=== PATIENT | female | born 1940 | race Caucasian/White ===

== ENCOUNTER 2018-03-22 16:40 | Emergency (ER) | payer MEDICARE ==
[2018-03-22] MEDS ORDERED: PARO-243 PO (16:44)
[2018-03-22] MEDS ORDERED: METF-411 PO (16:44)
--- NOTE | 2018-03-22 16:45 | ER Report ---
History and Physical Time Seen By MD: 16:45 Hx. of Stated Complaint: SHOE CAUGHT AND FELL DOWN THREE STAIRS. BROKEN/MISSING TEETH, NOSE LACERATION AND LIP LACERATION. HPI/ROS CHIEF COMPLAINT: Fall with laceration to nose, laceration to lip and bruising. HISTORY OF PRESENT ILLNESS: 77-year-old female patient presents to emergency room with complaint of fall with laceration to her nose, laceration or lip and bruising. Patient states that she was leaving the [employer] tonight when she went to step down somebody offered to take a drink out of her hand. She is caring a drink for herself as well as for her . When she went to him that to the person she caught her foot on the stair and up falling face first onto the concrete. Patient denies any loss of consciousness. She states she has no neck pain, head pain, nausea, vomiting or diarrhea. Patient states she is not taking any medication for this. Patient states she is impaired that she has broken teeth as well as laceration to her nose. Patient states she is not taking any blood thinning medications. Patient denies having any headache. REVIEW OF SYSTEMS: Respiratory: No cough, no dyspnea. Cardiovascular: No chest pain, no palpitations. Gastrointestinal: No vomiting, no abdominal pain. Musculoskeletal: As noted above Allergies: Coded Allergies: clarithromycin (Verified Allergy, Unknown, 03/22/18) erythromycin base (Verified Allergy, Unknown, 03/22/18) Home Meds Active Scripts Cephalexin 500 Mg Tab (KEFLEX 500 MG TAB) 500 Mg Tablet, 500 MG PO Q6H, #28 TAB Prov:JIL HERNANDEZ [facility] 03/22/18 Oxycodone Hcl/Acetaminophen (PERCOCET 5-325 MG TABLET) 1 Each Tablet, 1 EACH PO Q4-6H Y for PAIN, #20 TAB Prov:JIL HERNANDEZP 03/22/18 Reported Medications Paroxetine Hcl (PAXIL) 20 Mg Tablet, 20 MG PO QDAY, TAB 03/22/18 Metformin Hcl (METFORMIN HCL) 500 Mg Tablet, 1 TAB PO BID, TAB 03/22/18 Past Medical/Surgical History Patient has a past medical history of diabetes. Patient denies any surgical history. Reviewed Nurses Notes: Yes Constitutional Vital Sign - Last 24 Hours 03/22/18 03/22/18 03/22/18 03/22/18 16:41 17:00 18:00 18:30 Temp 98.6 Pulse 103 90 93 106 Resp 18 B/P (MAP) 136/92 132/84 (100) 132/76 (94) 154/93 (113) Pulse Ox 95 92 93 94 O2 Delivery Room Air Physical Exam General Appearance: The patient is alert, has no immediate need for airway protection and no current signs of toxicity. Eyes: Pupils equal and round no injection. ENT: Tympanic membranes are pearly-ng, auditory canals are patent, mixed mucous membranes are moist. Patient has no septal hematomas bilaterally, patient does have a laceration to the nose measuring approximately 3 cm in length. Patient also has laceration to her lip measuring approximately 1 cm. Teeth appear to be broken and displaced. Tooth #9 is loose and hanging. Respiratory: Chest is non tender, lungs are clear to auscultation. Cardiac: regular rate and rhythm Gastrointestinal: Abdomen is soft and non tender, no masses, bowel sounds normal. Musculoskeletal: Neck: Neck is supple and non tender. Extremities have full range of motion and are non tender. Skin: No rashes or lesions. Neuro: Patient is alert and oriented 4, cranial nerves II through XII grossly intact. DIFFERENTIAL DIAGNOSIS: After history and physical exam differential diagnosis was considered for head injury including but not limited to concussion, skull fracture, intraparenchymal contusion, subarachnoid, subdural and epidural hematoma. Medical Decision Making Data Points Result Diagram: 03/22/18 1709 03/22/18 1709 Laboratory Hematology Test 03/22/18 17:09 Red Blood Count 4.81 M/uL (4.17-5.56) Mean Corpuscular Volume 89.3 fL (80.0-96.0) Mean Corpuscular Hemoglobin 30.8 pg (26.0-33.0) Mean Corpuscular Hemoglobin Concent 34.5 g/dL (32.0-36.0) Red Cell Distribution Width 14.1 % (11.5-14.5) Mean Platelet Volume 8.5 fL (7.2-11.1) Neutrophils (%) (Auto) 62.3 % (39.4-72.5) Lymphocytes (%) (Auto) 25.2 % (17.6-49.6) Monocytes (%) (Auto) 8.9 % (4.1-12.4) Eosinophils (%) (Auto) 2.9 % (0.4-6.7) Basophils (%) (Auto) 0.7 % (0.3-1.4) Nucleated RBC Relative Count (auto) 0.1 /100WBC Neutrophils # (Auto) 5.1 K/uL (2.0-7.4) Lymphocytes # (Auto) 2.1 K/uL (1.3-3.6) Monocytes # (Auto) 0.7 K/uL (0.3-1.0) Eosinophils # (Auto) 0.2 K/uL (0.0-0.5) Basophils # (Auto) 0.1 K/uL (0.0-0.1) Nucleated RBC Absolute Count (auto) 0.01 K/uL Prothrombin Time 12.5 seconds (12.0-14.4) Prothromb Time International Ratio 0.93 Activated Partial Thromboplast Time 25 seconds (23-35) Sodium Level 140 mmol/L (137-145) Potassium Level 4.1 mmol/L (3.5-5.0) Chloride Level 102 mmol/L (98-107) Carbon Dioxide Level 27 mmol/L (22-31) Blood Urea Nitrogen 19 mg/dl (7-18) Creatinine 0.80 mg/dl (0.52-1.04) Glomerular Filtration Rate Calc > 60.0 Random Glucose 141 mg/dl (75-110) Calcium Level 9.8 mg/dl (8.4-10.2) Total Bilirubin 0.5 mg/dl (0.2-1.3) Aspartate Amino Transf (AST/SGOT) 28 U/L (0-35) Alanine Aminotransferase (ALT/SGPT) 27 U/L (0-56) Alkaline Phosphatase 72 U/L (0-126) Total Protein 7.0 g/dl (6.3-8.2) Albumin 4.1 g/dl (3.5-5.0) Chemistry Test 03/22/18 17:09 White Blood Count 8.2 k/uL (4.5-11.0) Red Blood Count 4.81 M/uL (4.17-5.56) Hemoglobin 14.8 g/dL (12.0-16.0) Hematocrit 43.0 % (34.0-47.0) Mean Corpuscular Volume 89.3 fL (80.0-96.0) Mean Corpuscular Hemoglobin 30.8 pg (26.0-33.0) Mean Corpuscular Hemoglobin Concent 34.5 g/dL (32.0-36.0) Red Cell Distribution Width 14.1 % (11.5-14.5) Platelet Count 183 K/uL (150-450) Mean Platelet Volume 8.5 fL (7.2-11.1) Neutrophils (%) (Auto) 62.3 % (39.4-72.5) Lymphocytes (%) (Auto) 25.2 % (17.6-49.6) Monocytes (%) (Auto) 8.9 % (4.1-12.4) Eosinophils (%) (Auto) 2.9 % (0.4-6.7) Basophils (%) (Auto) 0.7 % (0.3-1.4) Nucleated RBC Relative Count (auto) 0.1 /100WBC Neutrophils # (Auto) 5.1 K/uL (2.0-7.4) Lymphocytes # (Auto) 2.1 K/uL (1.3-3.6) Monocytes # (Auto) 0.7 K/uL (0.3-1.0) Eosinophils # (Auto) 0.2 K/uL (0.0-0.5) Basophils # (Auto) 0.1 K/uL (0.0-0.1) Nucleated RBC Absolute Count (auto) 0.01 K/uL Prothrombin Time 12.5 seconds (12.0-14.4) Prothromb Time International Ratio 0.93 Activated Partial Thromboplast Time 25 seconds (23-35) Glomerular Filtration Rate Calc > 60.0 Calcium Level 9.8 mg/dl (8.4-10.2) Total Bilirubin 0.5 mg/dl (0.2-1.3) Aspartate Amino Transf (AST/SGOT) 28 U/L (0-35) Alanine Aminotransferase (ALT/SGPT) 27 U/L (0-56) Alkaline Phosphatase 72 U/L (0-126) Total Protein 7.0 g/dl (6.3-8.2) Albumin 4.1 g/dl (3.5-5.0) Coagulation Test 03/22/18 17:09 Prothrombin Time 12.5 seconds Prothromb Time International Ratio 0.93 Activated Partial Thromboplast Time 25 seconds EKG/Imaging Imaging EXAMINATION: CT cervical spine without IV contrast HISTORY: Fall with laceration. TECHNIQUE: Thin axial CT images of the cervical spine were obtained without IV contrast, with sagittal and coronal 2D reconstructed images. One of the following dose optimization techniques was utilized in the performance of this exam: Automated exposure control; adjustment of the mA and/ or kV according to the patient's size; or use of an iterative reconstruction technique. Specific details can be referenced in the facility's radiology CT exam operational policy. COMPARISON: None. FINDINGS: The cervical spine is negative for acute fracture or subluxation. Normal alignment. Vertebral body height is maintained. Chronic degenerative changes in the cervical spine. There is moderate disc space narrowing at C2-C3 and C3-C4 with endplate osteophyte formation. Mild disc space narrowing at C5-C6. Posterior elements are intact, with normal alignment along the cervical facet joints. The dens is intact. Normal alignment at the craniocervical junction. IMPRESSION: 1. No acute osseous findings in the cervical spine. 2. Chronic degenerative changes with moderate disc space narrowing at C2-C3 and C3-C4. Findings were discussed with JIL HERNANDEZ at 03/22/2018 6:14 PM. Report Dictated By: Fox Kessler MD at 03/22/2018 6:12 PM Report E-Signed By: Fox Kessler MD at 03/22/2018 6:14 PM EXAMINATION: CT head without IV contrast CT facial bones without IV contrast HISTORY: Fall with laceration. TECHNIQUE: Axial CT images of the head were obtained from the vertex to the skull base without IV contrast, with coronal and sagittal 2D reconstructed images. Thin axial CT images of the facial bones were obtained without IV contrast, from the superior orbit through the mandible, with 2D coronal and sagittal reconstructed images. One of the following dose optimization techniques was utilized in the performance of this exam: Automated exposure control; adjustment of the mA and/ or kV according to the patient's size; or use of an iterative reconstruction technique. Specific details can be referenced in the facility's radiology CT exam operational policy. COMPARISON: None. FINDINGS: Mild age-appropriate parenchymal volume loss, with slight patchy low attenuation in the deep white matter compatible with chronic small vessel ischemic change. There is some physiologic calcification along the right basal ganglia. No CT evidence of intracranial hemorrhage, mass lesion, or acute infarct. No midline shift or extra-axial fluid collections. Ng-white differentiation is maintained. The calvarium is intact. Dedicated imaging of the facial bones demonstrates left-sided facial fractures involving the zygomaticomaxillary complex. There are nondisplaced fractures extending along the anterior and lateral brooks of the left maxillary sinus. Fracture lines extend inferiorly to the socket of the left maxillary first molar (tooth #14). There is a nondisplaced fracture through the posterior aspect of the left zygomatic arch. No impaction of the malar eminence. There is slight osseous irregularity along the medial wall of the left orbit, suspicious for a nondisplaced fracture of the medial orbital wall along the lamina papyracea. No definite fracture involving the orbital floor or lateral wall. Nondisplaced fractures of the bilateral nasal bones. There is a mildly angulated fracture through the bony aspect of the midline nasal septum. No evidence of any additional right-sided facial fracture. The right bony orbit and right maxilla appear intact. The mandible is intact, with normal alignment at the temporomandibular joints. There is scattered mucosal thickening throughout the paranasal sinuses with some layering fluid in both maxillary sinuses. There is opacification of several inferior mastoid air cells on the right, without evidence of fracture. The bilateral mastoid air cells and middle ear cavities are otherwise unopacified. Soft tissue swelling and laceration along the nose. There is some air in the soft tissues adjacent to the left maxillary sinus. IMPRESSION: 1. No CT evidence of intracranial hemorrhage or other acute intracranial pathology. 2. Left-sided facial fractures. There are nondisplaced fractures involving the anterior and lateral brooks of the left maxillary sinus, posterior aspect of the left zygomatic arch, and medial wall of the left orbit. Bilateral nasal bone fractures with a mildly angulated fracture of the bony nasal septum. Findings were discussed with JIL HERNANDEZ at 03/22/2018 6:14 PM. Report Dictated By: Fox Kessler MD at 03/22/2018 6:00 PM Report E-Signed By: Fox Kessler MD at 03/22/2018 6:18 PM ED Course/Re-evaluation ED Course Patient was admitted to an exam room, history and physical were obtained. Differential diagnoses were considered. On examination patient has a laceration to the nose, measuring approximately 3 cm, laceration to the lip measuring approximately 1 cm, teeth are broken, tooth #9 is hanging. Patient is alert and oriented, cranial nerves II through XII grossly intact. A CT scan of the head, cervical spine, facial bones. A CBC, CMP, PT and PTT were done. Lab results were unremarkable. Patient had a negative CT scan of the head, cervical spine. Patient did have left-sided facial fractures as well as fractures of bilateral nasal bones and nasal septum. On examination patient did not have a septal hematoma. I discussed the findings with the patient. I contacted facial trauma surgeon to discuss the case. He did not feel that the patient needed to have any surgery, but recommend following up with oral maxillofacial surgeon or can follow-up with him in [place]. Patient was encouraged follow-up with the group in [place] due to her home being [place]. The patient was anesthetized , cleaned and repaired as described below. Due to the broken teeth with did attempt to put some putty back behind the teeth to hold them in place. That did seem to help, however is awaiting for that hard patient did have some bleeding from her upper lip. It was pulsatile bleeding. We did place 2 simple interrupted sutures to staunch the bleeding. And that was with Vicryl material. Bleeding was under control. She noted that even with the putty back behind the teeth that tooth #9 was still loose. We then placed putty on the anterior side of the teeth, that seemed to stabilize that tooth. Patient states she's feeling better. Due to the bleeding that she had patient became nauseated. We did get her up to wash her hands. All she is up she states she became very lightheaded and thought she was going to pass out. We were able to get her to a chair prior to passing out. We did give her some juice after she vomited up some blood. Patient states she's feeling better at that time would like to be discharged home. Procedure: Laceration repair. Verbal consent was obtained from the patient. The 3 cm and 1 cm laceration on nose and upper lip were anesthetized in the usual fashion. The wounds were scrubbed, draped and explored to its base with a gloved finger. There were no deep structures involved. No tendon injury was identified. The wound was repaired with 13 and 5 simple interrupted sutures using 6-0 Prolene material. The wound repair was simple. The procedure was performed by myself. Decision to Disposition Date: Mar 22, 2018 Decision to Disposition Time: 21:18 Depart Departure Latest Vital Signs Vital Signs Date Time Temp Pulse Resp B/P (MAP) Pulse Ox O2 Delivery O2 Flow Rate FiO2 03/22/18 18:30 106 154/93 (113) 94 03/22/18 16:41 98.6 18 Room Air Impression: Primary Impression: Multiple facial fractures Additional Impressions: Nasal laceration Lip laceration Broken teeth Condition: Improved Disposition: HOME OR SELF-CARE New Scripts Cephalexin 500 Mg Tab (KEFLEX 500 MG TAB) 500 Mg Tablet 500 MG PO Q6H, #28 TAB Prov: JIL HERNANDEZ SHERE[facility] 03/22/18 Oxycodone Hcl/Acetaminophen (PERCOCET 5-325 MG TABLET) 1 Each Tablet 1 EACH PO Q4-6H Y for PAIN, #20 TAB Prov: JIL HERNANDEZ RN OUTPATIENT SURGERY 03/22/18 Patient Instructions: Facial Fracture (ED), Facial Laceration (ED) Additional Instructions: Limit activity by pain. Ice the nose 2-3 times a day for 10-15 minutes. Follow up with [place] oral maxillofacial surgeons, call Sunday to make an appointment. You may take Ibuprofen as needed for pain in addition to the pain medication. Don't take any additional Tylenol while on the pain medication. Keep wound dry for 48 hours. Follow up with your primary care provider in the next 5-7 days to have sutures removed. Monitor for signs of infection; redness, swelling, heat, discharge, increasing pain or red streaking. Return to the ER with any concerns. Rinse mouth with warm salt water after every meal. Eat soft foods. Follow up with your dentist as soon as possible, call to make an appointment. Problem Qualifiers Primary Impression: Multiple facial fractures Encounter type: initial encounter Fracture type: closed Qualified Codes: S02.92XA - Unspecified fracture of facial bones, initial encounter for closed fracture Additional Impressions: Nasal laceration Encounter type: initial encounter Qualified Codes: S01.21XA - Laceration without foreign body of nose, initial encounter Lip laceration Encounter type: initial encounter Qualified Codes: S01.511A - Laceration without foreign body of lip, initial encounter Broken teeth Encounter type: initial encounter Fracture type: open Qualified Codes: S02.5XXB - Fracture of tooth (traumatic), initial encounter for open fracture JIL HERNANDEZ [facility] Mar 22, 2018 16:45
[2018-03-22 17:17] LABS: PLATELET COUNT, AUTOMATED 183 K/uL (150-450)
[2018-03-22 17:26] LABS: INR 0.93
--- NOTE | 2018-03-22 18:17 | RADIOLOGY IMAGING REPORT ---
FACILITY: [facility] - [place] PATIENT NAME: Azra Rucker : 1940 MR: [id number] V: [id number] EXAM DATE: ORDERING PHYSICIAN: JIL HERNANDEZ TECHNOLOGIST: Location: [facility] [place] Patient: Azra Rucker : 1940 Visit/Account:[id number] Date of Sevice: 03/22/2018 EXAMINATION: CT cervical spine without IV contrast HISTORY: Fall with laceration. TECHNIQUE: Thin axial CT images of the cervical spine were obtained without IV contrast, with sagit monica and coronal 2D reconstructed images. One of the following dose optimization techniques was utilized in the performance of this exam: Autom ated exposure control; adjustment of the mA and/or kV according to the patient's size; or use of an i terative reconstruction technique. Specific details can be referenced in the facility's radiology C T exam operational policy. COMPARISON: None. FINDINGS: The cervical spine is negative for acute fracture or subluxation. Normal alignment. Vertebral body he ight is maintained. Chronic degenerative changes in the cervical spine. There is moderate disc space narrowing at C2-C3 a nd C3-C4 with endplate osteophyte formation. Mild disc space narrowing at C5-C6. Posterior elements are intact, with normal alignment along the cervical facet joints. The dens is intact. Normal alignment at the craniocervical junction. IMPRESSION: 1. No acute osseous findings in the cervical spine. 2. Chronic degenerative changes with moderate disc space narrowing at C2-C3 and C3-C4. Findings were discussed with JIL HERNANDEZ at 03/22/2018 6:14 PM. Report Dictated By: Fox Kessler MD at 03/22/2018 6:12 PM Report E-Signed By: Fox Kessler MD at 03/22/2018 6:14 PM WSN:[id number]
--- NOTE | 2018-03-22 18:22 | RADIOLOGY IMAGING REPORT ---
FACILITY: [facility] - [place] PATIENT NAME: Azra Rucker : 1940 MR: [id number] V: [id number] EXAM DATE: ORDERING PHYSICIAN: JIL HERNANDEZ TECHNOLOGIST: Location: [facility] - [place] Patient: Azra Rucker : 1940 Visit/Account:[id number] Date of Sevice: 03/22/2018 EXAMINATION: CT head without IV contrast CT facial bones without IV contrast HISTORY: Fall with laceration. TECHNIQUE: Axial CT images of the head were obtained from the vertex to the skull base without IV c ontrast, with coronal and sagittal 2D reconstructed images. Thin axial CT images of the facial bones were obtained without IV contrast, from the superior orbit through the mandible, with 2D coronal and sagittal reconstructed images. One of the following dose optimization techniques was utilized in the performance of this exam: Autom ated exposure control; adjustment of the mA and/or kV according to the patient's size; or use of an i terative reconstruction technique. Specific details can be referenced in the facility's radiology C T exam operational policy. COMPARISON: None. FINDINGS: Mild age-appropriate parenchymal volume loss, with slight patchy low attenuation in the deep white ma tter compatible with chronic small vessel ischemic change. There is some physiologic calcification al dane the right basal ganglia. No CT evidence of intracranial hemorrhage, mass lesion, or acute infarct. No midline shift or extra-a xial fluid collections. Ng-white differentiation is maintained. The calvarium is intact. Dedicated imaging of the facial bones demonstrates left-sided facial fractures involving the zygomati comaxillary complex. There are nondisplaced fractures extending along the anterior and lateral brooks of the left maxillary sinus. Fracture lines extend inferiorly to the socket of the left maxillary fir st molar (tooth #14). There is a nondisplaced fracture through the posterior aspect of the left zygom atic arch. No impaction of the malar eminence. There is slight osseous irregularity along the medial wall of the left orbit, suspicious for a nondis placed fracture of the medial orbital wall along the lamina papyracea. No definite fracture involving the orbital floor or lateral wall. Nondisplaced fractures of the bilateral nasal bones. There is a mildly angulated fracture through the bony aspect of the midline nasal septum. No evidence of any additional right-sided facial fracture. The right bony orbit and right maxilla amos ear intact. The mandible is intact, with normal alignment at the temporomandibular joints. There is scattered mucosal thickening throughout the paranasal sinuses with some layering fluid in mary th maxillary sinuses. There is opacification of several inferior mastoid air cells on the right, with out evidence of fracture. The bilateral mastoid air cells and middle ear cavities are otherwise unopa cified. Soft tissue swelling and laceration along the nose. There is some air in the soft tissues adjacent t o the left maxillary sinus. IMPRESSION: 1. No CT evidence of intracranial hemorrhage or other acute intracranial pathology. 2. Left-sided facial fractures. There are nondisplaced fractures involving the anterior and lateral w alls of the left maxillary sinus, posterior aspect of the left zygomatic arch, and medial wall of the left orbit. Bilateral nasal bone fractures with a mildly angulated fracture of the bony nasal septum . Findings were discussed with JIL HERNANDEZ at 03/22/2018 6:14 PM. Report Dictated By: Fox Kessler MD at 03/22/2018 6:00 PM Report E-Signed By: Fox Kessler MD at 03/22/2018 6:18 PM WSN:[id number]
--- NOTE | 2018-03-22 18:22 | RADIOLOGY IMAGING REPORT ---
FACILITY: [facility] - [place] PATIENT NAME: Azra Rucker : 1940 MR: [id number] V: [id number] EXAM DATE: ORDERING PHYSICIAN: JIL HERNANDEZ TECHNOLOGIST: Location: [facility] [place] Patient: Azra Rucker : 1940 Visit/Account:[id number] Date of Sevice: 03/22/2018 EXAMINATION: CT head without IV contrast CT facial bones without IV contrast HISTORY: Fall with laceration. TECHNIQUE: Axial CT images of the head were obtained from the vertex to the skull base without IV c ontrast, with coronal and sagittal 2D reconstructed images. Thin axial CT images of the facial bones were obtained without IV contrast, from the superior orbit through the mandible, with 2D coronal and sagittal reconstructed images. One of the following dose optimization techniques was utilized in the performance of this exam: Autom ated exposure control; adjustment of the mA and/or kV according to the patient's size; or use of an i terative reconstruction technique. Specific details can be referenced in the facility's radiology C T exam operational policy. COMPARISON: None. FINDINGS: Mild age-appropriate parenchymal volume loss, with slight patchy low attenuation in the deep white ma tter compatible with chronic small vessel ischemic change. There is some physiologic calcification al dane the right basal ganglia. No CT evidence of intracranial hemorrhage, mass lesion, or acute infarct. No midline shift or extra-a xial fluid collections. Ng-white differentiation is maintained. The calvarium is intact. Dedicated imaging of the facial bones demonstrates left-sided facial fractures involving the zygomati comaxillary complex. There are nondisplaced fractures extending along the anterior and lateral brooks of the left maxillary sinus. Fracture lines extend inferiorly to the socket of the left maxillary fir st molar (tooth #14). There is a nondisplaced fracture through the posterior aspect of the left zygom atic arch. No impaction of the malar eminence. There is slight osseous irregularity along the medial wall of the left orbit, suspicious for a nondis placed fracture of the medial orbital wall along the lamina papyracea. No definite fracture involving the orbital floor or lateral wall. Nondisplaced fractures of the bilateral nasal bones. There is a mildly angulated fracture through the bony aspect of the midline nasal septum. No evidence of any additional right-sided facial fracture. The right bony orbit and right maxilla amos ear intact. The mandible is intact, with normal alignment at the temporomandibular joints. There is scattered mucosal thickening throughout the paranasal sinuses with some layering fluid in mary th maxillary sinuses. There is opacification of several inferior mastoid air cells on the right, with out evidence of fracture. The bilateral mastoid air cells and middle ear cavities are otherwise unopa cified. Soft tissue swelling and laceration along the nose. There is some air in the soft tissues adjacent t o the left maxillary sinus. IMPRESSION: 1. No CT evidence of intracranial hemorrhage or other acute intracranial pathology. 2. Left-sided facial fractures. There are nondisplaced fractures involving the anterior and lateral w alls of the left maxillary sinus, posterior aspect of the left zygomatic arch, and medial wall of the left orbit. Bilateral nasal bone fractures with a mildly angulated fracture of the bony nasal septum . Findings were discussed with JIL HERNANDEZ at 03/22/2018 6:14 PM. Report Dictated By: Fox Kessler MD at 03/22/2018 6:00 PM Report E-Signed By: Fox Kessler MD at 03/22/2018 6:18 PM WSN:[id number]
[2018-03-22 20:30] VITALS: BP 110/66
[2018-03-22] MEDS ORDERED: OXYC-865 PO (21:19)
[2018-03-22] MEDS ORDERED: CEPH500T7 PO (21:19)
[2018-03-22] MEDS ORDERED: oxyCODONE/ACETAMIN 5/325MG TH 2 TAB/BOTTLE PO ONE (21:20)
== END 2018-03-22 21:47 | disposition home or self-care (01) ==
LOC: ER 16:44
DX: S02.19XA Other fracture of base of skull, initial encounter for closed fracture (principal); S02.40FA Zygomatic fracture, left side, initial encounter for closed fracture; S02.82XA Fracture of other specified skull and facial bones, left side, initial encounter for closed fracture; S02.2XXA Fracture of nasal bones, initial encounter for closed fracture; S01.21XA Laceration without foreign body of nose, initial encounter; S01.511A Laceration without foreign body of lip, initial encounter; S02.5XXB Fracture of tooth (traumatic), initial encounter for open fracture; W01.198A Fall on same level from slipping, tripping and stumbling with subsequent striking against other object, initial encounter
CPT/HCPCS: 70450; 70486; 72125; 82040; 82247; 82310; 82374; 82435; 82565; 82947; 84075; 84132; 84155; 84295; 84450; 84460; 84520; 85025; 85610; 85730; 99285

== ENCOUNTER → 2018-03-22 | Outpatient (CLI) | payer MEDICARE ==
[~2018-03-22] MED LIST: CEPH500T7 PO; METF-411 PO; OXYC-865 PO; PARO-243 PO
== END ==
LOC: AMB 16:18
PROVIDERS: ATTEND Nurse Practitioner
DX: S01.21XA Laceration without foreign body of nose, initial encounter (principal); K00.0 Anodontia; W10.9XXA Fall (on) (from) unspecified stairs and steps, initial encounter; Y92.89 Other specified places as the place of occurrence of the external cause
CPT/HCPCS: A0425; A0429